=== PATIENT | female | born 1970 | race Caucasian/White ===

== ENCOUNTER 2022-06-21 06:57 | Outpatient (CLI) | payer OTHER, SELFPAY | END 2022-06-21 06:58 | disposition home or self-care (01) | LOC: OP CLINIC 06:58 | PROVIDERS: PCP Physician Assistant Medical; Visit Provider Internal Medicine | DX: Z12.11 Encounter for screening for malignant neoplasm of colon (principal); K63.5 Polyp of colon | CPT/HCPCS: 45380; 45385; 88305; J2250; J2405; J3010 ==

== ENCOUNTER 2023-06-20 07:04 | Outpatient (CLI) | payer OTHER, SELFPAY ==
--- NOTE | 2023-06-20 07:15 | MR_ITS ---
[facility] [address] [facility] [address] Phone:?[phone] Fax:?[phone] Referring Physician Information: Kenny Miles M.D. [address] [facility] [address] Phone:?[phone] Fax:?[phone] Patient:Miriam Verdugo D.O.B:?1970 Sex:?Female Phone:? [facility] MRN:[id number] Exam Date:?06/20/2023 EXAM: MRI EXAMINATION OF THE LEFT SHOULDER CLINICAL INFORMATION: Left shoulder pain. No history of surgery to this area. Evaluate possible rotator cuff tear. Evaluate calcific tendinitis. TECHNICAL INFORMATION: Coronal STIR as well as axial, sagittal and coronal PD and T2-weighted images acquired. No prior studies for comparison. INTERPRETATION: Bones: There is no Hill-Sachs impaction deformity. No other evidence for an occult fracture or osseous contusion. Rotator Cuff: There are mild to moderate changes of supraspinatus tendinopathy. Associated irregularity and fraying involving bursal sided fibers of the tendon. Series 7 images 5 and 6 demonstrate a linear and somewhat irregular appearance of low signal intensity within the posterior tendon. Mild infraspinatus tendinopathy. The teres minor tendon is intact. Mild subscapularis tendinopathy. No appreciable rotator cuff muscle belly atrophy. Coracoacromial arch: There is no discrete subacromial osseous spur. The bony acromiohumeral interval is measuring 8 to 9 mm. There is no thickening identified of the coracoacromial ligament. Acromioclavicular joint: Mild AC joint DJD. No deformity of the underlying supraspinatus tendon. Mild fluid and edema signal within the subdeltoid bursa. Biceps tendon: The long head biceps tendon is intact and nondisplaced from the bicipital groove. No evidence for a tendon tear or any appreciable changes of tendinopathy. No evidence for tenosynovitis. Glenohumeral joint and labrum: There is a moderate glenohumeral joint effusion. There are changes of synovitis within the joint. There is thinning of the articular cartilage without full-thickness loss involving the superior one third of the glenoid. Broad chondromalacia and apparent components of associated full-thickness loss along the superomedial humeral head. There is tearing through the superior aspect of the labrum. Tearing continues involving the superior posterior labrum as well. No discrete paralabral cyst is identified. CONCLUSION: 1. Mild to moderate supraspinatus tendinopathy with associated irregularity and fraying involving bursal sided fibers. Linear and somewhat irregular low signal intensity tissue within the posterior tendon fibers appearing related to calcium hydroxyapatite deposition/calcific tendinitis. 2. Mild infraspinatus and subscapularis tendinopathy. 3. Glenohumeral osteoarthritis. Broad chondromalacia with apparent components of associated full-thickness loss along the superomedial humeral head. Partial thickness chondromalacia involves the mid to superior glenoid. There is a moderate joint effusion. 4. Mild AC joint DJD with mild subdeltoid bursitis. 5. Unremarkable and intact long head biceps tendon. 6. Tearing involves the superior and superior posterior labrum. KES Electronically signed on 06/20/2023 10:56:00 AM by Zacarias Huitron M.D.
== END 2023-06-20 07:05 | disposition home or self-care (01) ==
LOC: MRI 07:05
PROVIDERS: PCP Physician Assistant Medical; Visit Provider Orthopaedic Surgery Sports Medicine
DX: M25.512 Pain in left shoulder (principal); M75.102 Unspecified rotator cuff tear or rupture of left shoulder, not specified as traumatic; M75.32 Calcific tendinitis of left shoulder; M19.012 Primary osteoarthritis, left shoulder; M75.52 Bursitis of left shoulder; S43.432A Superior glenoid labrum lesion of left shoulder, initial encounter
CPT/HCPCS: 73221

== ENCOUNTER 2023-12-01 13:49 | Outpatient (CLI) | payer OTHER, SELFPAY | END 2023-12-01 13:50 | disposition home or self-care (01) | PROVIDERS: PCP Physician Assistant Medical; Visit Provider Family Medicine | DX: M54.9 Dorsalgia, unspecified (principal); E78.00 Pure hypercholesterolemia, unspecified; R10.9 Unspecified abdominal pain | CPT/HCPCS: 80053; 80061; 83690 ==

== ENCOUNTER 2023-12-19 07:03 | Outpatient (CLI) | payer OTHER, SELFPAY ==
--- NOTE | 2023-12-19 07:15 | CRLHL7_ITS ---
For Patients: As a result of the Century Cures Act, medical imaging exams and procedure reports are released immediately into your electronic medical record. You may view this report before your referring provider. If you have questions, please contact your health care provider. INDICATION: Abdominal pain COMPARISON: none TECHNIQUE: Real time chua scale imaging and color Doppler analysis was performed of the right upper quadrant. FINDINGS: The patient`s liver is of normal size and has slightly increased echogenicity. There is a normal appearance of the hepatic IVC and proximal abdominal aorta. There is no evidence of ascites. The gallbladder is of normal size and there is no evidence of intraluminal stones or sludge. The gallbladder wall measures 1.5 mm in thickness. The common bile duct is of normal size and measures 2.2 mm in diameter at the level of the jamila hepatis. The pancreas appears normal. There is no evidence of a stone or hydronephrosis within the right kidney. The right kidney measures 11.2 cm in length. Simple cyst right kidney measures 12 millimeters. IMPRESSION: Mild hepatic steatosis. Remainder unremarkable. Dictated by Lawrence Mead MD @ 12/19/2023 12:48:00 PM (Electronically Signed)
== END 2023-12-19 07:04 | disposition home or self-care (01) ==
LOC: US 07:03
PROVIDERS: PCP Physician Assistant Medical; Visit Provider Family Medicine
DX: R10.9 Unspecified abdominal pain (principal); K76.0 Fatty (change of) liver, not elsewhere classified
CPT/HCPCS: 76705

== ENCOUNTER 2024-02-20 13:05 | Outpatient (CLI) | payer OTHER, SELFPAY ==
--- NOTE | 2024-02-20 13:20 | CRLHL7_ITS ---
For Patients: As a result of the Century Cures Act, medical imaging exams and procedure reports are released immediately into your electronic medical record. You may view this report before your referring provider. If you have questions, please contact your health care provider. BILATERAL SCREENING MAMMOGRAM WITH COMPUTER-AIDED DETECTION AND TOMOSYNTHESIS TECHNIQUE: CC and MLO views were obtained. These mammographic images have been obtained using full-field digital technique. These mammographic images were interpreted with the benefit of computer-aided detection. Breast Tomosynthesis was used in this interpretation. COMPARISON FILM: 05/31/21, 03/22/16, 03/16/16. FINDINGS: There are scattered areas of fibroglandular density IMPRESSION: There is no radiographic evidence for malignancy. ASSESSMENT: BI-RADS Category 1: Negative RECOMMENDATION: Routine screening mammogram in 1 year. A lay language report of this examination will be provided to the patient. Lawrence Mead M.D. Diagnostic Radiologist [email or web address] LEXI/Dictated by: Lawrence Mead MD @ 02/22/2024 11:20:00 AM (Electronically Signed)
== END 2024-02-20 13:06 | disposition home or self-care (01) ==
LOC: MAMMO 13:06
PROVIDERS: PCP Physician Assistant Medical; Visit Provider Family Medicine
DX: Z12.31 Encounter for screening mammogram for malignant neoplasm of breast (principal)
CPT/HCPCS: 77063; 77067